=== PATIENT | male | born 1945 | race Caucasian/White ===

== ENCOUNTER 2023-03-17 19:35 | Emergency (ER) | payer MEDICARE, SELFPAY ==
[2023-03-17 19:47] VITALS: BP 169/78; PULSE 52; RESP 16; TEMP 37; O2SAT 98; BMI 25.3
--- NOTE | 2023-03-17 20:51 | ED.SKABFB ---
HPI - Skin/Abscess/Foreign Bdy General Chief complaint: Skin/Abscess/Foreign Body Stated complaint: Tic bite, behind R knee, Irritation, red Time Seen by Provider: 03/17/23 20:42 Source: patient Mode of arrival: Ambulatory Limitations: no limitations History of Present Illness HPI narrative: Patient is a 77-year-old male who is here for evaluation of irritation behind his right knee. He states that there was a tick in this area that his removed earlier today. He is noticed some redness around the area. There was concern that potentially there was still a portion of the tick in place. He denies any other symptoms. Review of Systems Constitutional Constitutional: Reports system reviewed and no additional complaints, except as documented Musculoskeletal Musculoskeletal: Reports system reviewed and no additional complaints, except as documented Integumentary/Breasts Skin/Breast: Reports system reviewed and no additional complaints, except as documented Neurologic Neurologic: Reports system reviewed and no additional complaints, except as documented Exam Initial Vital Signs Initial Vital Signs: Vital Signs Temperature 98.6 F 03/17/23 19:47 Pulse Rate 52 L 03/17/23 19:47 Respiratory Rate 16 03/17/23 19:47 Blood Pressure 169/78 H 03/17/23 19:47 Pulse Oximetry 98 03/17/23 19:47 Oxygen Delivery Method Room Air 03/17/23 19:47 Skin Other: Small area of redness on the posterior aspect of the right knee. There does not appear to be any portion of the tick still in the skin. Neuro General: patient alert, patient awake and moves all extremities Course Vital Signs Vital signs: Vital Signs - 8 hr 03/17/23 19:47 Temperature 98.6 F Pulse Rate 52 L Respiratory Rate 16 Blood Pressure 169/78 H Pulse Oximetry 98 Oxygen Delivery Method Room Air MDM - Skin/Abscess/Foreign Bdy MDM Narrative Medical decision making narrative: There is a small area of redness around the area where the tick was located however I have low suspicion that this is cellulitis. There was also no indication that there is any portion of the tick still remaining. There is no indication for antibiotics. Patient was given care instructions and return precautions. He expressed understanding and agreement. Discharge Plan Departure Patient Disposition: Home Clinical Impression: Tick bite Instructions: Protect Yourself from Tickborne Illnesses Activity Restrictions/Additional Instructions: I recommend that you use a topical antibiotic ointment and potentially even a topical Benadryl cream. You can shower like normal. Recommend that you watch the area over the next 24-48 hours and the redness starts to worsen you develop other symptoms such as fever you do need to return to the emergency department for further evaluation. Stand Alone Forms: Patient Portal/API
== END 2023-03-17 21:00 | disposition home or self-care (01) ==
PROVIDERS: Emergency Provider Emergency Medicine
DX: R21 Rash and other nonspecific skin eruption (principal); W57.XXXA Bitten or stung by nonvenomous insect and other nonvenomous arthropods, initial encounter
CPT/HCPCS: 99281